=== PATIENT | female | born 1995 | race Two or more races ===

== ENCOUNTER 2021-10-22 10:59 | Emergency (ER) | payer BC ==
[~2021-10-22] VITALS: Ht 167.6 cm; Wt 104.3 kg
--- NOTE | 2021-10-22 11:10 | NUR ---
BIB SELF C/O HEADACHE FOR 3WKS. AMBULATORY, [id number]. PLACED ON BED
--- NOTE | 2021-10-22 11:15 | NUR ---
AT BED SIDE
--- NOTE | 2021-10-22 11:20 | NUR ---
BLOOD DRAWN AND SENT TO LAB.
[2021-10-22] MEDS ORDERED: SUMATRIPTAN SUCCINATE 6 MG/0.5 ML VIAL SQ ONE (12:00)
[2021-10-22] MEDS ORDERED: IV NS 0.9% 1,000 ML BAG IV ONE (12:00)
[2021-10-22] MEDS ORDERED: PROCHLORPERAZINE EDISYLATE 10 MG/2 ML VIAL ONE (12:00)
[2021-10-22] MEDS ORDERED: METOCLOPRAMIDE HCL 10 MG/2 ML VIAL ONE (12:00)
[2021-10-22] MEDS ORDERED: PROCHLORPERAZINE EDISYLATE 10 MG/2 ML VIAL IVP ONE (12:00)
[2021-10-22] MEDS ORDERED: acetaZOLAMIDE 250 MG TABLET PO ONE (12:00)
[2021-10-22] MEDS ORDERED: METOCLOPRAMIDE HCL 10 MG/2 ML VIAL IV ONE (12:00)
[2021-10-22] MEDS ORDERED: methylPREDNISolone SOD SUCC 125 MG/2ML VIAL IV ONE (12:00)
[2021-10-22] MEDS ORDERED: methylPREDNISolone SOD SUCC 125 MG/2ML VIAL ONE (12:00)
[2021-10-22 12:13] LABS: CREATININE 0.6 mg/dL (0.6-1.3); POTASSIUM 3.9 mmol/L (3.5-5.1)
[2021-10-22 12:18] LABS: BASOPHILS % (AUTO) 0.2 % (0.0-2.0); EOSINOPHILS % (AUTO) 1.5 % (0.0-6.0); HEMATOCRIT 46 % (33-45); HEMOGLOBIN 15.5 g/dL (11.5-14.8); LYMPHOCYTES # (AUTO) 2.9 K/uL (0.8-4.8); LYMPHOCYTES % (AUTO) 39.4 % (20.0-44.0); MEAN CORPUSCULAR HGB CONC 34 g/dl (31.0-36.0); MEAN CORPUSCULAR VOLUME 89 fL (82-100); MONOCYTES # (AUTO) 0.5 K/uL (0.1-1.30); MONOCYTES % (AUTO) 7.4 % (2.0-12.0); NEUTROPHILS # (AUTO) 3.8 K/uL (1.8-8.9); NEUTROPHILS % (AUTO) 51.5 % (43.0-81.0); PLATELET COUNT (AUTO) 277 K/uL (150-450); RED BLOOD CELL COUNT(AUTO) 5.19 MIL/uL (4.0-5.2); WHITE BLOOD COUNT (AUTO) 7.4 K/uL (4.3-11.0)
[2021-10-22] MEDS ORDERED: LORAZEPAM INJ 2 MG/ML VIAL ONE (12:33)
--- NOTE | 2021-10-22 12:45 | NUR ---
PATIENT SIGNED AMA. SIGNED AMA GIVEN TO DR LE.
[2021-10-22] MEDS ORDERED: ACET250T3 PO (12:46)
[2021-10-22] MEDS ORDERED: FURO-145 PO (12:46)
[2021-10-22] MEDS ORDERED: LORAZEPAM INJ 2 MG/ML VIAL IV ONE (13:00)
--- NOTE | 2021-10-22 13:00 | NUR ---
IV removed. Catheter intact and site benign. Pressure and 4x4 applied to site. No bleeding noted.
[2021-10-22 13:34] VITALS: BP 125/90
== END 2021-10-22 13:35 | disposition home or self-care (01) ==
LOC: ER 11:15
DX: R51.9 Headache, unspecified (principal); Z79.899 Other long term (current) drug therapy
CPT/HCPCS: 36415; 80048; 84703; 85025; 85730; 96361; 96374; 96375; 99284; J0780; J2060; J2765; J2930; J7030